=== PATIENT | male | born 1955 | race American Indian/Alaskan Native ===

== ENCOUNTER 2017-09-25 14:13 | Outpatient (CLI) | payer OTHER ==
--- NOTE | 2017-09-25 17:10 | Magnetic Resonance Report ---
MR scan of the cranium was performed with and without contrast. Pulse sequences included: 1. T1 weighted sagittal and axial images without contrast and T1 axial images with contrast and T1 coronal and sagittal reconstructions with contrast 2. T2 weighted axial and coronal images 3. FLAIR axial images 4. Diffusion-weighted axial images 5. Apparent diffusion coefficient images Views of the posterior fossa showed a normal craniocervical junction. Cerebellar pontine angles were normal with normal seventh-eighth nerve complexes. Brainstem and cerebellum were normal. The ventricular system showed no dilatation or distortion. Images of the hemispheres showed areas of increased signal in the periventricular white matter consistent with araiosis. Sinuses, pituitary, flow voids in the [place], orbits, and basal ganglia were normal. There are no abnormal areas of enhancement with contrast. Impression: Abnormal MR scan of the cranium with and without contrast showing araiosis.
--- NOTE | 2017-09-26 16:11 | Magnetic Resonance Report ---
MRI CERVICAL SPINE WITHOUT CONTRAST: 09/25/17 CLINICAL: Right hemiplegia. TECHNIQUE: Sagittal T1,T2 and STIR and axial gradient T2* sequences on a 1.5 Paz magnet. FINDINGS:Normal vertebral body alignment through T1. Decreased height of vertebral bodies C3, C4, C5 and C6. This is most dramatic at C5 but the marrow signal is normal with no evidence of marrow edema. The disc spaces are preserved. Multilevel small anterior and posterior osteophytes from C3-4 through C7-T1. The cerebellar tonsils are in normal position. The spinal cord is normal size. C2-3: Intact. C3-4:A large broad-based central disc protrusion producing effacement of the thecal sac and compression of the cord. Moderate spinal canal stenosis with the AP diameter the canal measuring 7 mm. Ligamentum flavum hypertrophy contributes to the stenosis. Uncal osteophytes and bilateral facet hypertrophy. Marked left neural foraminal stenosis and moderate right neural foraminal stenosis. A right paracentral focus of hyperintense cord signal on T2 and STIR. C4-5: Small broad-based central disc protrusion producing partial effacement of the thecal sac but no cord compression. Bilateral facet hypertrophy. A large left uncal and left foraminal osteophyte produces severe left neural foraminal narrowing. C5-6:A moderately large broad-based central disc-osteophyte producing effacement of the thecal sac but no cord compression. Bilateral uncal osteophytes and facet hypertrophy with severe bilateral neural foraminal narrowing. C6-7:A moderately large broad-based central disc-osteophyte producing partial effacement of the thecal sac and no cord compression. Uncal osteophytes and bilateral facet hypertrophy producing severe bilateral neural foraminal narrowing. C7-T1:Moderate large broad-based central disc-osteophyte producing partial effacement of the thecal sac. Uncal osteophytes and bilateral facet hypertrophy producing severe bilateral neural foraminal narrowing. IMPRESSION: 1. Multilevel degenerative disc disease, most severe at C3-4 where there is canal stenosis with compression of the cord and right paracentral focal cord edema. 2. A lesser degree of spinal canal stenosis at other levels. 3. Multilevel severe bilateral neural foraminal narrowing produced by osteophytes and facet hypertrophy.
== END 2017-09-25 14:14 | disposition home or self-care (01) ==
LOC: SPVIMAG 14:13
PROVIDERS: ATTEND Specialist
DX: M48.02 Spinal stenosis, cervical region (principal); M50.31 Other cervical disc degeneration, high cervical region; G81.93 Hemiplegia, unspecified affecting right nondominant side; M25.78 Osteophyte, vertebrae; M24.28 Disorder of ligament, vertebrae; R93.8 Abnormal findings on diagnostic imaging of other specified body structures
CPT/HCPCS: 70553; 72141; A9577